=== PATIENT | male | born 1980 | race Caucasian/White ===

== ENCOUNTER 2017-11-27 14:22 | Emergency (ER) | payer OTHER ==
[~2017-11-27] VITALS: Ht 172.7 cm; Wt 59.0 kg
[2017-11-27] MEDS ORDERED: NOHOMEMEDICATIONS (14:34)
[2017-11-27] MEDS ORDERED: IBUPROFEN 800800 M1 PO (16:45)
[2017-11-27 16:59] VITALS: BP 109/57
== END 2017-11-27 17:00 | disposition home or self-care (01) ==
LOC: M.ERS 14:22
DX: S93.401A Sprain of unspecified ligament of right ankle, initial encounter (principal); F17.200 Nicotine dependence, unspecified, uncomplicated; W11.XXXA Fall on and from ladder, initial encounter; Y93.89 Activity, other specified; Y92.89 Other specified places as the place of occurrence of the external cause; Y99.8 Other external cause status